=== PATIENT | male | born 1960 | race Caucasian/White ===

== ENCOUNTER 2019-11-12 15:06 | Observation (INO) | payer OTHER ==
[~2019-11-12] VITALS: Ht 180.3 cm; Wt 93.6 kg
[2019-11-12 15:26] LABS: BASOPHILS ABSOLUTE AUTO 0.05 K/mm3 (0.00-0.23); BASOPHILS PERCENT AUTO 1 % (0-2); EOSINOPHILS ABSOLUTE AUTO 0.07 K/mm3 (0.00-0.68); EOSINOPHILS PERCENT AUTO 1 % (0-6); Hematocrit 48.4 % (37.0-53.0); Hemoglobin 16.5 g/dL (13.5-17.5); IMMATURE GRAN ABSOLUTE AUTO 0.21 K/mm3 (0.00-0.10); IMMATURE GRAN PERCENT AUTO 2 % (0-1); LYMPHOCYTES ABSOLUTE AUTO 3.62 K/mm3 (0.84-5.20); LYMPHOCYTES PERCENT AUTO 36 % (21-46); MONOCYTES ABSOLUTE AUTO 0.79 K/mm3 (0.16-1.47); MONOCYTES PERCENT AUTO 8 % (4-13); Mean Corpuscular HGB 30.3 pg (26.0-34.0); Mean Corpuscular HGB Conc 34.1 g/dL (31.5-36.5); Mean Corpuscular Volume 89 fL (80-100); Mean Platelet Volume 9.3 fL (9.1-12.4); NEUTROPHILS ABSOLUTE AUTO 5.33 K/mm3 (1.96-9.15); NEUTROPHILS PERCENT AUTO 53 % (41-73); Platelet Count 258 K/mm3 (150-400); RDW Coefficient Variation 12.6 % (11.7-14.2); Red Blood Cell Count 5.45 M/mm3 (4.30-5.90); White Blood Cell Count 10.07 K/mm3 (4.00-11.30)
[2019-11-12 15:39] LABS: Prothrombin Time Results 10.7 Sec (9.7-11.5)
[2019-11-12 15:47] LABS: Alanine Aminotransfer (ALT/SGP 55 U/L (12-78); Albumin/Globulin Ratio 1.2 (0.8-1.8); Alk Phos 80 U/L (50-136); Anion Gap 7 mmol/L (6-16); Aspartate Aminotrans (AST/SGOT 51 U/L (12-37); Bilirubin, Total 0.8 mg/dL (0.1-1.0); Blood Urea Nitrogen 18 mg/dL (8-24); Bun/Creatinine Ratio 18.3 (12.0-20.0); CO2, Blood 24 mmol/L (21-32); Calcium, Blood 8.7 mg/dL (8.5-10.1); Chloride, Blood 106 mmol/L (98-108); Creatinine, Blood 0.98 mg/dL (0.60-1.20); Ethanol (Alcohol), Blood, Med <3 mg/dL; Globulin, Blood 3.4 g/dL (2.2-4.0); Glomerular Filtration Rate >60 (60-); Glucose, Blood 158 mg/dL (70-99); Potassium, Blood 3.6 mmol/L (3.5-5.5); Sodium, Blood 137 mmol/L (136-145); Total Protein, Blood 7.4 g/dL (6.4-8.2)
[2019-11-12 18:59] LABS: Source, Urine Clean Catch
[2019-11-12 19:02] LABS: Appearance, Urine Clear (Clear); Bilirubin, Urine Neg (Neg); Blood, Urine 5+ (Neg); Color, Urine Yellow (P-Yellow); Glucose Qualitative, Urine Neg (Neg); Ketones, Urine 1+ (Neg); Leukocyte Esterase, Urine Neg (Neg); Nitrite, Urine Neg (Neg); Protein, Urine 2+ (Neg); Specific Gravity, Urine 1.015 (1.003-1.022); Urobilinogen, Urine 1+ (Normal)
[2019-11-12 19:16] LABS: Bacteria Few /hpf; Squamous Epithelial Cells Few /hpf (Few)
[2019-11-12 19:17] LABS: Hyaline Casts 0-2 /lpf (0-2); Mucus Light (0-Heavy)
[2019-11-12 19:29] LABS: U Amphetamine Screen Not Detected; U Barbituate Screen Not Detected; U Benzodiazapine Screen Not Detected; U Buprenorphine Screen Not Detected; U Cannabinoids Screen DETECTED; U Cocaine Screen Not Detected; U Methadone Screen Not Detected; U Methamphetamine Screen Not Detected; U Opiates Screen DETECTED; U Oxycodone Screen Not Detected; U Propoxyphene Screen Not Detected
--- NOTE | 2019-11-12 20:02 | NUR ---
DR SÁNCHEZ AND ANESTHESIA HERE RECENTLY FOR CONSULT WITH PT. REPORTS PT WILL BE GOING TO OPERATING ROOM SOON.
--- NOTE | 2019-11-12 22:10 | NUR ---
PACU RECOVERY PT ALERT, ORIENTED, AND FOLLOWING DIRECTIONS APPROPRIATELY. PT DOES COMPLAIN OF PAIN AND MUSCLE SPASMS TO LOWER EXTREMITIES. VITAL SIGNS STABLE. PT ON ROOM AIR. PT MED WITH FENTANYL PER EMAR. PT AND ALL BELONGINGS TAKEN TO ROOM 217 AT 2205.
--- NOTE | 2019-11-12 23:29 | NUR ---
PT BACK FROM PROCEDURE RECENTLY. A/O. C/O PAIN; DISCUSSED PAIN MANAGMENT. REPORTS PREVIOUS NARCOTIC/OPIATE USE WITH HIGH TOLERANCE. MED PER ORDERS AND NOTIFIED PHYSICIAN.
--- NOTE | 2019-11-13 04:24 | NUR ---
SHIFT SUMMARY PT IS A/O X4. S/P I&D L LEG AND R KNEE. PT IS C/O A LOT OF PAIN IN THAT LEG/HIP BUT HAS BEEN RECEIVING THE LIMIT OF PAIN MEDICATION. WAS NOTIFIED. PT IS VOIDING AND TOLERATING PO INTAKE. ASSISTED WITH ADLS PRN.
[2019-11-13 04:39] LABS: BASOPHILS ABSOLUTE AUTO 0.01 K/mm3 (0.00-0.23); BASOPHILS PERCENT AUTO 0 % (0-2); EOSINOPHILS PERCENT AUTO 0 % (0-6); Hemoglobin 12.5 g/dL (13.5-17.5); IMMATURE GRAN ABSOLUTE AUTO 0.05 K/mm3 (0.00-0.10); IMMATURE GRAN PERCENT AUTO 1 % (0-1); LYMPHOCYTES ABSOLUTE AUTO 0.48 K/mm3 (0.84-5.20); LYMPHOCYTES PERCENT AUTO 5 % (21-46); MONOCYTES PERCENT AUTO 6 % (4-13); Mean Corpuscular HGB 30.5 pg (26.0-34.0); Mean Corpuscular HGB Conc 33.8 g/dL (31.5-36.5); Mean Corpuscular Volume 90 fL (80-100); Mean Platelet Volume 9.5 fL (9.1-12.4); NEUTROPHILS ABSOLUTE AUTO 8.92 K/mm3 (1.96-9.15); NEUTROPHILS PERCENT AUTO 89 % (41-73); Platelet Count 160 K/mm3 (150-400); RDW Coefficient Variation 12.4 % (11.7-14.2); RDW Standard Deviation 40.9 fL (35.1-46.3); White Blood Cell Count 10.06 K/mm3 (4.00-11.30)
--- NOTE | 2019-11-13 19:30 | NUR ---
SHIFT SUMMARY PAIN HAS BEEN MANAGED WITH IV AND PO PAIN MEDICATION. PT IS A SBA WHEN OOB. VSS. WILL MONITOR UNTIL REPORT TO ONCOMING RN.
--- NOTE | 2019-11-14 06:34 | NUR ---
SHIFT SUMMARY HAS RESTED THIS SHIFT. AMBULATED TO BATHROOM AND ATTEMPTED TO HAVE BM, PASSED FLATUS. PAIN MANAGED WITH PRN NORCO. DENIES FURTHER NEEDS OR WANTS AT THIS TIME. SAFETY MEASURES IN PLACE. WILL GIVE HAND OFF TO ONCOMING SHIFT USING SBAR DURING BEDSIDE REPORT.
[2019-11-14] MEDS ORDERED: DOCU100 PO (08:05)
[2019-11-14] MEDS ORDERED: CYCL10 PO (08:05)
[2019-11-14] MEDS ORDERED: Norco 10-325 T1 EACH PO (08:06)
--- NOTE | 2019-11-14 14:45 | NUR ---
DISCHARGE PT PROVIDED WITH WRITTEN AND VERBAL DISCHARGE INSTRUCTIONS. HE VERBALIZED UNDERSTANDING. PT REPORTED ELEVATED PAIN AT DISCHARGE, HE CONSITANTLY RATED HIS PAIN HIGH DURING HIS STAY. PT WAS PROVIDED WITH ICE TO HELP WITH PAIN UNTIL HE COULD HAVE ANOTHER PAIN MEDICATION. HARD SCRIPTS PROVIDED. PT DISCHARGED WITH TAYLER PARADA.
== END 2019-11-14 14:24 | disposition home or self-care (01) ==
LOC: ER 15:06 → SURS 15:07 → ICUW 15:07 → SURS 15:07 → ER 15:07 → SURS 15:08 → ICUW 21:29 → SURS 22:15 → ICUW 22:15 → SURS 23:22
PROVIDERS: Emergency Medicine; Orthopaedic Surgery; ADMIT Surgery
PROC: 0QBG0ZZ Excision of Right Tibia, Open Approach (ICD-10-PCS; principal; 2019-11-12 20:00)
DX: S82.202B Unspecified fracture of shaft of left tibia, initial encounter for open fracture type I or II (principal); S32.019A Unspecified fracture of first lumbar vertebra, initial encounter for closed fracture; S32.029A Unspecified fracture of second lumbar vertebra, initial encounter for closed fracture; S32.039A Unspecified fracture of third lumbar vertebra, initial encounter for closed fracture; S32.049A Unspecified fracture of fourth lumbar vertebra, initial encounter for closed fracture; Z88.0 Allergy status to penicillin; Y92.009 Unspecified place in unspecified non-institutional (private) residence as the place of occurrence of the external cause; V23.9XXA Unspecified motorcycle rider injured in collision with car, pick-up truck or van in traffic accident, initial encounter; Z91.041 Radiographic dye allergy status; Z88.8 Allergy status to other drugs, medicaments and biological substances; Z79.899 Other long term (current) drug therapy
CPT/HCPCS: 12002; 36415; 70450; 71045; 71260; 72125; 72170; 73552; 73562-RT; 73590; 74177; 80053; 81001; 83690; 85025; 85610; 86850; 86900; 86901; 87070; 87075; 87205; 94762; 96365; 96366; 96372; 96374-59; 96375; 96375-59; 96376; 96376-59; 97116; 97162; 97166; 97530; 97535; 99285-25; A9270-GY; G0378; G0480; J0690; J1100; J1170; J1200; J1650; J2250; J2370; J2405; J2704; J2930; J3010; J7030; Q9967

== ENCOUNTER 2021-05-20 12:13 | Emergency (ER) | payer OTHER ==
[~2021-05-20] VITALS: Ht 177.8 cm; Wt 81.7 kg
[~2021-05-20 12:13] MED LIST: CYCL10 PO; DOCU100 PO; Flomax0.4 MG PO; Norco 10-325 T1 EACH PO; Roxicodone5 MG PO; wheelchair
[2021-05-20 14:12] LABS: BASOPHILS ABSOLUTE AUTO 0.03 K/mm3 (0.00-0.23); BASOPHILS PERCENT AUTO 0 % (0-2); EOSINOPHILS ABSOLUTE AUTO 0.05 K/mm3 (0.00-0.68); EOSINOPHILS PERCENT AUTO 1 % (0-6); Hematocrit 50.3 % (37.0-53.0); IMMATURE GRAN ABSOLUTE AUTO 0.06 K/mm3 (0.00-0.10); IMMATURE GRAN PERCENT AUTO 1 % (0-1); LYMPHOCYTES ABSOLUTE AUTO 1.22 K/mm3 (0.84-5.20); LYMPHOCYTES PERCENT AUTO 14 % (21-46); MONOCYTES ABSOLUTE AUTO 0.52 K/mm3 (0.16-1.47); MONOCYTES PERCENT AUTO 6 % (4-13); Mean Corpuscular HGB Conc 33.8 g/dL (31.5-36.5); Mean Corpuscular Volume 89 fL (80-100); Mean Platelet Volume 9.4 fL (9.1-12.4); NEUTROPHILS PERCENT AUTO 78 % (41-73); Platelet Count 187 K/mm3 (150-400); RDW Coefficient Variation 12.7 % (11.7-14.2); RDW Standard Deviation 41.5 fL (35.1-46.3); Red Blood Cell Count 5.67 M/mm3 (4.30-5.90); White Blood Cell Count 8.58 K/mm3 (4.00-11.30)
[2021-05-20 14:50] LABS: Alanine Aminotransfer (ALT/SGP 33 U/L (12-78); Albumin, Blood 4.3 g/dL (3.4-5.0); Albumin/Globulin Ratio 1.2 (0.8-1.8); Alk Phos 83 U/L (50-136); Anion Gap 6 mmol/L (6-16); Aspartate Aminotrans (AST/SGOT 25 U/L (12-37); Bilirubin, Total 0.8 mg/dL (0.1-1.0); Blood Urea Nitrogen 13 mg/dL (8-24); Bun/Creatinine Ratio 13.9 (12.0-20.0); CO2, Blood 25 mmol/L (21-32); Calcium, Blood 9.3 mg/dL (8.5-10.1); Chloride, Blood 107 mmol/L (98-108); Creatinine, Blood 0.93 mg/dL (0.60-1.20); Globulin, Blood 3.7 g/dL (2.2-4.0); Glomerular Filtration Rate >60 (60-); Glucose, Blood 94 mg/dL (70-99); Potassium, Blood 3.8 mmol/L (3.5-5.5); Sodium, Blood 138 mmol/L (136-145); Troponin I <0.015 ng/mL (0.000-0.040)
[2021-05-20 18:37] LABS: CPK Creatine Kinase 45 U/L (39-308); Troponin I <0.015 ng/mL (0.000-0.040)
[2021-05-20 18:44] LABS: Creatine Kinase MB <1.0 ng/mL (0.0-3.6); Creatine Kinase MB Index Unable to Calculate (0.0-4.0)
[2021-05-20] MEDS ORDERED: HYDR1TAB94 PO (18:49)
[2021-05-20 19:22] LABS: U Amphetamine Screen Not Detected; U Barbituate Screen Not Detected; U Benzodiazapine Screen Not Detected; U Buprenorphine Screen Not Detected; U Cannabinoids Screen DETECTED; U Cocaine Screen Not Detected; U Methadone Screen Not Detected; U Methamphetamine Screen Not Detected; U Opiates Screen DETECTED; U Oxycodone Screen DETECTED; U Phencyclidine Screen Not Detected; U Propoxyphene Screen Not Detected
== END 2021-05-20 19:40 | disposition home or self-care (01) ==
LOC: ER 12:13
PROVIDERS: Emergency Medicine; Physician Assistant
DX: M25.512 Pain in left shoulder (principal); R07.9 Chest pain, unspecified; M54.89 Other dorsalgia; Z88.0 Allergy status to penicillin; Z91.013 Allergy to seafood; Z88.8 Allergy status to other drugs, medicaments and biological substances; Z79.899 Other long term (current) drug therapy
CPT/HCPCS: 36415; 71046; 80053; 82550; 82553; 84484; 85025; 93005; 93010; 96361; 96374; 96375; 99285-25; J1170; J2405; J7030

== ENCOUNTER 2023-08-04 07:21 | Day surgery (SDC) | payer OTHER ==
[~2023-08-04] VITALS: Ht 177.8 cm; Wt 82.8 kg
[~2023-08-04 07:21] MED LIST changes: +DICLOFENAC SOD100 G1 TP; +DOXYCYCLINE HY100 M1 PO; +HYDR1TAB94 PO; +OXYC10TA19 PO
[2023-08-04] MEDS ORDERED: PROBIOTIC1 EA14 PO (08:30)
--- NOTE | 2023-08-04 08:38 | NUR ---
08/04/23 0838 Krupa Perez AT 0832 PLEDGET AT 0834
[2023-08-04 09:47] VITALS: BP 107/80
--- NOTE | 2023-08-04 09:49 | NUR ---
08/04/23 0949 SUNITA ALDANA IV REMOVED. CANNULA INTACT. SHERRILL WELL. WNL
== END 2023-08-04 10:10 | disposition home or self-care (01) ==
LOC: ORSCSDS 07:21
PROVIDERS: Student in an Organized Health Care Education/Training Program
PROC: 08RJ3JZ Replacement of Right Lens with Synthetic Substitute, Percutaneous Approach (ICD-10-PCS; principal; 2023-08-04 09:00)
DX: H25.11 Age-related nuclear cataract, right eye (principal); Z96.1 Presence of intraocular lens; Z79.899 Other long term (current) drug therapy
CPT/HCPCS: J2250; J7040; V2632

== ENCOUNTER 2024-10-18 08:31 | Day surgery (SDC) | payer OTHER ==
[~2024-10-18] VITALS: Ht 180.3 cm; Wt 91.4 kg
[~2024-10-18 08:31] MED LIST changes: +Lidocaine 2%-Epineph 1:200000 20 ML SDV ONE; +PROBIOTIC1 EA14 PO
[2024-10-18] MEDS ORDERED: propofoL 20 ML IV ONE (08:52)
[2024-10-18] MEDS ORDERED: FentaNYL Citrate 50 MCG/ML 2 ML Injection ONE ×2 (08:52→11:37)
[2024-10-18] MEDS ORDERED: FLUT.05NI (09:29)
[2024-10-18] MEDS ORDERED: Lactated Ringer's 1,000 ML IV ONE ×3 (09:33→13:42)
--- NOTE | 2024-10-18 09:34 | NUR ---
10/18/24 0934 BETHANY LI RAILS UP, CALL LIGHT IN REACH
[2024-10-18] MEDS ORDERED: Midazolam HCl 1MG / ML 2ML Vial ONE (10:05)
[2024-10-18] MEDS ORDERED: Dexamethasone Sod Phos 10 MG/ML 1ML VIAL ONE (10:14)
[2024-10-18] MEDS ORDERED: Ondansetron HCl 2 MG / ML 2ML Vial ONE (10:14)
[2024-10-18] MEDS ORDERED: Phenylephrine HCl 100 MCG/ML-NS 10MLSYR (1MG/10ML) ONE (10:25)
[2024-10-18] MEDS ORDERED: ePHEDrine Sulfate 50 MG/ML 1ML Injection ONE (10:25)
[2024-10-18] MEDS ORDERED: EPINEPhrine HCl 1 MG / ML 30ML Vial ONE (10:33)
[2024-10-18] MEDS ORDERED: OxyCODONE HCL 5 MG TAB ONE (11:39)
--- NOTE | 2024-10-18 12:00 | NUR ---
10/18/24 Alycia Caballero PATIENT REPORTED PAIN HAD INCREASED TO 3-4/10 IN NOSE, 7-8/10 IN BACK WHICH IS CHRONIC PAIN FROM AN ACCIDENT AND DID HAVE 7-8/10 IN THROAT BUT AFTER DRINKING ICE WATER AND COFFEE THIS HAS IMPROVED TO 2-3/10. AFTER FENTANYL 25MCG IV X1 BACK PAIN IMPROVED TO 3-4/10 AND NOSE PAIN IMPROVED TO 1-2/10.
[2024-10-18 12:06] VITALS: BP 134/83
== END 2024-10-18 12:39 | disposition home or self-care (01) ==
LOC: ORSCSDS 08:31
PROVIDERS: Otolaryngology
PROC: 09SL0ZZ Reposition Nasal Turbinate, Open Approach (ICD-10-PCS; principal; 2024-10-18 10:30)
PROC: 09BM0ZZ Excision of Nasal Septum, Open Approach (ICD-10-PCS; principal; 2024-10-18 10:30)
DX: J34.2 Deviated nasal septum (principal); J34.3 Hypertrophy of nasal turbinates; J32.8 Other chronic sinusitis; G47.33 Obstructive sleep apnea (adult) (pediatric); Z79.899 Other long term (current) drug therapy
CPT/HCPCS: A9270; J0171; J1100; J2250; J2371; J2405; J2704; J3010; J7120